=== PATIENT | female | born 1985 | race Caucasian/White ===

== ENCOUNTER 2020-12-01 19:05 | Emergency (ER) | payer BC ==
[~2020-12-01] VITALS: Ht 160 cm; Wt 61.2 kg
[~2020-12-01 19:05] MED LIST: BUPROPION XL150 MG PO; CITALOPRAM HBR20 MG PO; NORCO 5-325 TA1 EACH PO; VALIUM5 MG PO
== END 2020-12-01 22:45 | disposition home or self-care (01) ==
LOC: ED 19:05
DX: B34.9 Viral infection, unspecified (principal); F17.200 Nicotine dependence, unspecified, uncomplicated; Z79.899 Other long term (current) drug therapy
CPT/HCPCS: 80053; 81001; 83735; 85025; 96374; 99284-25; J2405; J7030